=== PATIENT | male | born 1985 | race Caucasian/White ===

== ENCOUNTER 2020-07-30 15:45 | Emergency (ER) | payer BC, SELFPAY ==
[2020-07-30 15:50] VITALS: BP 149/93; PULSE 85; RESP 18; TEMP 36.5; O2SAT 98; BMI 32.1
[2020-07-30 15:57] VITALS: BP 149/93; PULSE 85; RESP 18; TEMP 36.5; O2SAT 98
--- NOTE | 2020-07-30 16:00 | HMH.EDUTC ---
[facility] [place] Disposition Clinical Impression: COVID-19 virus test result unknown Disposition: Home, Self-Care Condition on Discharge: Good Instructions: Preventing the Spread of Coronavirus Discharge Instructions, How to Care for Someone with COVID-19 Additional Instructions: self isolate until test results are known to be neg if symptoms develop return or be seen by pcp Referrals: PCP,No [Primary Care Provider] - Forms: Work/School Release Time of Disposition: 16:03 Medical Decision Making - Rafal Inquiry Pt receiving controlled substance: No Vital Signs: 07/30/20 15:50 07/30/20 15:57 Temperature 97.7 F 97.7 F Temperature Source Temporal Artery Scan Pulse Rate 85 Pulse Rate [Right Brachial] 85 Respiratory Rate 18 18 Blood Pressure 149/93 H Blood Pressure [Right Arm] 149/93 H Blood Pressure Mean [Right Arm] 111 Blood Pressure Source [Right Arm] Automatic Cuff Blood Pressure Position [Right Arm] Sitting 02 Sat by Pulse Oximetry 98 Oxygen Delivery Method Room Air Orders (Tests/Meds): ORDERS Category Date Time Status Covid-19 Nasal PCR ([facility]) Routine Lab 07/30/20 15:46 Ordered [facility] [place] HPI - General Chief complaint: Urgent Treatment Center Stated complaint: covid test Time Seen by Provider: 07/30/20 16:00 Mode of Arrival: Ambulatory Source of Information: Patient Limitations: No Limitations Description of Symptoms (Recalled from Triage Doc. by RN): COVID TEST D/T INDIRECT EXPOSURE. DENIES SYMPTOMS HEENT Symptoms (Recalled from RN notes): No Resp Symptoms (Recalled from RN notes): No Skin Symptoms (Recalled from RN notes): No MS Symptoms (Recalled from RN notes): No Functional Status (Recalled from RN notes): WNL - History of Present Illness Provider Complaint: 34 yr old male presents for covid test, pt states he was around someone that was around someone that tested pos and his work wants him to have covid test before returning to work. pt states no symptoms - Related Data Allergies Allergy/AdvReac Type Severity Reaction Status Date / Time No Known Allergies Allergy Verified 07/30/20 15:57 - Worker's Comp Is this a Worker's Comp case?: No [facility] History - Hepatitis A Screen Drug use history?: No High risk sexual behaviors?: No History of sexually transmitted infection?: No Currently employed?: No Childcare worker?: No Do you have indoor plumbing?: Yes Do you have electricity?: Yes Attestation statement:: This patient has been screened for Hepatitis A risk factors. I have reviewed the patient's past medical history: Yes ROS Obtained: Yes Systems reviewed as appropriate & no additional complaints - Constitutional Constitutional: Reports system reviewed and no additional complaints, except as docu, Denies fever(s) - Eyes Eyes: Reports system reviewed and no additional complaints, except as docu, Denies blurry vision - ENT Ears, Nose, Mouth, and Throat: Reports system reviewed and no additional complaints, except as docu, Denies facial pain - Cardiovascular Cardiovascular: Reports system reviewed and no additional complaints, except as docu, Denies chest pain at rest - Respiratory Respiratory: Reports system reviewed and no additional complaints, except as docu, Denies change in phlegm color - Gastrointestinal Gastrointestingal: Reports: system reviewed and no additional complaints, except as docu. Denies: nausea, pain with swallowing - Genitourinary Male Genitourinary: Reports system reviewed and no additional complaints, except as docu - Musculoskeletal Musculoskeletal: Reports system reviewed and no additional complaints, except as docu, Denies joint pain - Integumentary/Breasts Skin/Breast: Reports system reviewed and no additional complaints, except as docu, Denies bleeding lesions, Denies rash - Neurologic Neurologic: Reports system reviewed and no additional complaints, except as docu, Denies dizziness - Endocrine Endocrine: Reports system revie
== END 2020-07-30 16:00 | disposition home or self-care (01) ==
PROVIDERS: Emergency Provider Nurse Practitioner Family
DX: Z20.822 Contact with and (suspected) exposure to COVID-19 (principal)
CPT/HCPCS: 99202; G0463; U0003

== ENCOUNTER 2024-09-23 07:33 | Emergency (ER) | payer SELFPAY ==
[2024-09-23 07:38] VITALS: BP 148/86; PULSE 102; O2SAT 99
[2024-09-23 07:43] VITALS: BP 148/86; PULSE 105; RESP 19; TEMP 36.9; O2SAT 99; BMI 26.4
[2024-09-23 08:00] VITALS: BP 137/76; PULSE 91; O2SAT 97
--- NOTE | 2024-09-23 08:12 | HMH.EDGENADL ---
Discharge Plan Disposition Patient Disposition: Home, Self-Care Chief Complaint: Wound/Laceration Referrals Follow up/Referrals: Provider,Referral, MD [Primary Care Provider] - See instructions Activity Restrictions/Add. Instructions Additional Instructions/Restrictions: Call your family doctor to establish care for this visit to the emergency department and schedule follow-up within 48 hours to ensure improvement. Clinical Impressions Clinical Impression: Forehead laceration Instructions Patient Instructions: DI for Laceration Repair Print Language Print Language: Slovenian Discharge ED Provider: Mahendra Jackson General Adult HPI General Chief complaint: Wound/Laceration Stated complaint: WC-laceration to forehead-705 hours Time Seen by Provider: 09/23/24 07:36 Mode of Arrival: Ambulatory Source of Information: Patient Description of Symptoms (Recalled from ER Triage Doc. by RN): pt presents to ED with c/o laceration to forhead. pt reports approx 0705 a piece of metal come back at work and hit him in the head. - LOC, headache 08/02. pt works at [employer] History of Present Illness HPI narrative: Please note that above description of symptoms, in this electronic medical record under categorization of recalled from ER triage doctor by RN are reflective of an initial nursing assessment, however, is not reflective of my full history and physical exam that was personally taken and clarified. Consequentially, this preceding description of symptoms, which may include the patient's categorized chief complaint in the EMR, do not reflect my personal clinical impression, and the ultimate description of history of present illness and patient stated complaints should be deferred to this section of the note. Unless stated otherwise or congruent with this section of the note, additional signs, symptoms, or incongruence should be interpreted as inaccurate with my clinical impression. Related Data Allergies Allergy/AdvReac Type Severity Reaction Status Date / Time No Known Allergies Allergy Verified 07/30/20 15:57 [facility] Disclaimer: The information contained in this section may have been updated after the patient was seen, as this information can be updated by other users. Social History Smoking Status: Current every day smoker alcohol intake: never current occupational status: employed Travel in the last 8 weeks: None ROS Obtained: Yes All systems reviewed & no additional complaints except as documented Physical Exam General General appearance: alert Head Head exam: normocephalic and other (2 cm superficial laceration on the forehead between the eyebrows) Eye Eye exam: Present normal appearance, PERRL and EOMI Neck Neck exam: Present normal inspection, full ROM and trachea midline Respiratory Respiratory exam: Absent respiratory distress, wheezes, stridor, accessory muscle use or prolonged expiratory phase Cardiovascular Cardiovascular exam: Present other (Pulses equal symmetric in upper and lower extremities) Abdominal Exam Abdominal exam: Present soft; Absent distention, tenderness or pulsatile mass Extremities Exam Extremities exam: Absent edema Neurological Exam Neurological exam: Present alert, oriented X3 and CN II-XII intact; Absent motor sensory deficit Skin Skin exam: Present warm and dry; Absent diaphoresis or erythema Medical Decision Making Medical Records Medical records reviewed: Yes I reviewed the patient's medical records. Screening: Per USPSTF and CDC recommendations, given the prevalence of disease in our region, it is our hospital?s policy to screen for HIV and viral Hepatitis for all patients aged 18 and over and those with ongoing risk factors. Rafal Inquiry Pt receiving controlled substance: No Rafal was queried for this patient: No Vital Signs: 09/23/24 07:38 09/23/24 07:43 09/23/24 08:00 Temperature 98.5 F Temperature Source Oral Pulse Rate 102 H 91 H Pulse Rate [Left Radial] 105 H Respiratory Rate 19 Blood Pressure 148/86 H 137/76 Blood Pressure [Right Arm] 148/86 H Blood Pressure Mean [Right Arm] 106 02 Sat by Pulse Oximetry 99 99 97 Oxygen Delivery Method Room Air Room Air Orders (Tests/Meds): ED MEDICATIONS Discontinued Medications Generic Name Dose Route Start Last Admin Trade Name Freq PRN Reason Stop Dose Admin Tetanus/Reduced Diphtheria/Acell Pertussis 0.5 ml 09/23/24 07:47 Tet/Diphth/Pert-Adult 0.5ml Syringe IM 09/23/24 07:48 .ONCE ONE ORDERS Category Date Time Status HIV Combo Stat Lab 09/23/24 07:49 Ordered Hepatitis C Ab Qual. W/ RFX Stat Lab 09/23/24 07:49 Ordered Medical Decision Narrative: 38-year-old male presenting with laceration to the face. He states that he was at work when a lumbar hook swung and hit him in the forehead between the eyes. He was wearing his safety glasses. Did not sustain any trauma to the eyes. Laceration of the head, was bleeding, so came in for further evaluation. Does not remember his last tetanus shot. Currently asymptomatic other than having the laceration itself. History was obtained via conversation with patient. On arrival, patient hemodynamically stable, alert, oriented x4, appropriate, GCS 15, moving all extremities spontaneously, pupils equal and reactive to light. Full physical exam performed and significant for 2 cm superficial lacerations does not violate subcutaneous tissue on the forehead. Clean, noncontaminated, uncomplicated. Worker's Compensation form was filled out. Patient's laceration was closed with 3 Steri-Strips and Mastisol. Because patient at baseline without signs or symptoms of clinical decompensation, deemed appropriate for discharge. Results were relayed to patient who voiced understanding and were agreeable to outpatient management and follow up. I discussed my clinical impression with patient and answered all questions. At this time, the evidence for any other entities in the differential is insufficient to warrant any further testing or ED observation. This was explained as well. Advisory was given that persistent or worsening symptoms require further evaluation. I confirmed the understanding of this discussion. [employer] disclaimer Much of this encounter note is an electronic clinical transplant coordinator spoken language to printed text. Electronic clinical transplant coordinator of the spoken language may permit errors. Although I have reviewed the note, some errors may still exist. Procedures Laceration Laceration 1: Site: face Size (cm): 2 Description: linear Depth: simple, single layer Pre-repair: wound explored and irrigated extensively Skin layer closed with: other (Mastisol and 3 Steri-Strips) Technique: simple, interrupted Critical Care Critical Care Time Critical Care Time: No
[2024-09-23] MEDS: TET/DIPHTH/PERT-ADULT 0.5ML SYRINGE 0.5 ML IM (08:16)
[2024-09-23 08:33] VITALS: BP 137/76; PULSE 90; RESP 19; TEMP 36.9; O2SAT 97
== END 2024-09-23 08:37 | disposition home or self-care (01) ==
PROVIDERS: Emergency Provider Emergency Medicine
DX: S01.81XA Laceration without foreign body of other part of head, initial encounter (principal); R51.9 Headache, unspecified; Z72.0 Tobacco use; Z23 Encounter for immunization; W20.8XXA Other cause of strike by thrown, projected or falling object, initial encounter; Y93.89 Activity, other specified; Y92.63 Factory as the place of occurrence of the external cause
CPT/HCPCS: 90471; 90715; 99283